=== PATIENT | female | born 1975 | race Two or more races ===

== ENCOUNTER 2020-01-24 07:26 | Day surgery (SDC) | payer OTHER ==
[~2020-01-24 07:26] MED LIST: MOBIC7.5 MG PO; ZANAFLEX2 M1 PO
== END 2020-01-24 16:15 | disposition home or self-care (01) ==
LOC: CIR.AMB 07:26
PROVIDERS: ATTEND Orthopaedic Surgery Hand Surgery
DX: G56.01 Carpal tunnel syndrome, right upper limb (principal); Z20.828 Contact with and (suspected) exposure to other viral communicable diseases

== ENCOUNTER 2023-12-15 07:27 | Day surgery (SDC) | payer OTHER ==
[2023-12-09 10:45] LABS: HEMATOCRIT 40.1 % (36.0-45.00); HEMOGLOBIN 13.2 g/dL (12.0-15.00); MEAN CELL VOLUME 85.5 fL (80.00-100.00); MEAN CORPUSCULAR HEMOGLOBIN 28.1 pg (27.00-32.0); MEAN CORPUSCULAR HGB CONC 32.9 g/dl (32.0-36.0); PLATELET COUNT 295 K/uL (150-450); RED CELL DISTRIBUTION WIDTH 14.7 % (11.5-14.5)
[2023-12-09 11:10] VITALS: BP 119/80
[2023-12-09 11:15] LABS: PH,URINE 5.5 (5.0-8.0); URINE APPEARANCE Clear; URINE BILIRRUBIN Negative (NEGATIVE); URINE BLOOD Negative; URINE COLOR Yellow; URINE GLUCOSE Negative (NEGATIVE); URINE KETONE Trace (NEGATIVE); URINE LEUKOCYTE Negative; URINE NITRATE Negative; URINE PROTEIN Negative (NEGATIVE); URINE UROBILINOGEN 0.2 E.U./dl
[2023-12-09 11:19] LABS: PROTHROMBIN TIME 10.9 SECONDS (9.0-11.5); URINE BACTERIA 1150.3 uL (0.0-1933); URINE EPITHELIAL CELLS 14.5 uL (0.0-38.8); URINE RBC 5.9 uL (0.0-20.8); URINE WBC 7.7 uL (0.0-23.2)
[2023-12-09 11:38] LABS: ALBUMIN 3.5 gm/dL (3.4-5.0); BILIRUBIN TOTAL 0.56 mg/dL (0.3-1.2); CALCIUM 9.2 mg/dL (8.5-10.1); CREATININE SERUM 0.57 mg/dL (0.55-1.02); GFR 114.19; GLOBULINA 3.7 G/DL (2.4-3.5); POTASSIUM 4.31 mEq/L (3.5-5.1); TOTAL PROTEIN 7.2 gm/dL (6.4-8.2)
[~2023-12-15] VITALS: Ht 165.1 cm; Wt 73.9 kg
[~2023-12-15 07:27] MED LIST changes: +ACID REDUCER20 M1 PO; +AMBIEN5 MG PO; +CLONAZEPAM0.5 M1 PO; +FOLIC ACID0.8 M1 PO; +MULTIPLE VITAM1 EAC2 PO; +SEROQUEL300 MG PO; +TREXALL5 MG PO
[2023-12-15] MEDS ORDERED: CEFAZOLIN SODIUM 1,000 MG VIAL IV ONE (10:45)
== END 2023-12-15 13:50 | disposition home or self-care (01) ==
LOC: CIR.AMB 07:27
PROVIDERS: ATTEND Orthopaedic Surgery Hand Surgery
DX: G56.02 Carpal tunnel syndrome, left upper limb (principal); Z88.5 Allergy status to narcotic agent; M19.90 Unspecified osteoarthritis, unspecified site